=== PATIENT | male | born 1990 | race Caucasian/White ===

== ENCOUNTER 2018-10-14 12:25 | Emergency (ER) | payer MEDICAID ==
[~2018-10-14] VITALS: Ht 188 cm; Wt 90.9 kg
[2018-10-14 12:35] VITALS: BP 144/85
[2018-10-14] MEDS ORDERED: LORazepam 1 MG tablet PO ONE (13:25)
[2018-10-14] MEDS ORDERED: LORA1TAB PO (13:26)
== END 2018-10-14 13:54 | disposition home or self-care (01) ==
LOC: ER 12:25
DX: F41.9 Anxiety disorder, unspecified (principal); F31.9 Bipolar disorder, unspecified; Z79.899 Other long term (current) drug therapy
CPT/HCPCS: 99284

== ENCOUNTER 2018-10-20 05:27 | Emergency (ER) | payer MEDICAID ==
[~2018-10-20] VITALS: Ht 188 cm; Wt 90.9 kg
[~2018-10-20 05:27] MED LIST: LORA1TAB PO
[2018-10-20 05:32] VITALS: BP 169/127
[2018-10-20] MEDS ORDERED: HYDR-3686 PO (06:20)
[2018-10-20] MEDS ORDERED: QUET-1 PO (16:00)
[2018-10-20] MEDS ORDERED: ARIP5TAB4 PO (17:21)
[2018-10-20] MEDS ORDERED: CLON-528 PO (17:21)
== END 2018-10-20 06:33 | disposition home or self-care (01) ==
LOC: ER 05:29
DX: F41.9 Anxiety disorder, unspecified (principal); F31.9 Bipolar disorder, unspecified; Z88.8 Allergy status to other drugs, medicaments and biological substances; Z79.899 Other long term (current) drug therapy
CPT/HCPCS: 99284

== ENCOUNTER 2018-10-20 12:19 | Emergency (ER) | payer MEDICAID ==
[~2018-10-20] VITALS: Ht 182.9 cm; Wt 88.8 kg
[~2018-10-20 12:19] MED LIST changes: +HYDR-3686 PO
[2018-10-20 12:26] VITALS: BP 156/117
[2018-10-20] MEDS ORDERED: LORazepam 2 mg/ml vial IM ONE (12:50)
--- NOTE | 2018-10-20 13:14 | NUR ---
PT HERE FOR MENTAL HEALTH EVAL.PT STATES HE IS BIPOLAR AND HAS BEEN TAKING HIS MEDS
[2018-10-20 13:26] LABS: BASOPHILS # (AUTO) 0.1 X10'3 (0-0.2); BASOPHILS % (AUTO) 0.7 % (0-1); EOSINOPHILS # (AUTO) 0.2 X10'3 (0-0.9); EOSINOPHILS % (AUTO) 1.4 % (0-6); HEMATOCRIT 45.4 % (42.0-52.0); HEMOGLOBIN 15.7 g/dl (14.0-17.9); LYMPHOCYTES # (AUTO) 2.9 X10'3 (1.1-4.8); LYMPHOCYTES % (AUTO) 22.4 % (21-51); MEAN CORPUSCULAR HEMOGLOBIN 31.9 PG (27.0-31.0); MEAN CORPUSCULAR HGB CONC 34.6 g/dL (33.0-36.5); MEAN CORPUSCULAR VOLUME 92.2 FL (78-98); MEAN PLATELET VOLUME 7.2 FL (7.4-10.4); MONOCYTES # (AUTO) 1.2 X10'3 (0-0.9); MONOCYTES % (AUTO) 9.7 % (2-12); NEUTROPHILS # (AUTO) 8.4 X10'3 (1.8-7.7); NEUTROPHILS % (AUTO) 65.8 % (42-75); PLATELET COUNT 299 X10'3 (140-440); RED BLOOD COUNT 4.93 X10'6 (4.70-6.10); RED CELL DISTRIBUTION WIDTH 13.3 % (11.5-14.5); WHITE BLOOD COUNT 12.8 X10'3 (4.5-11.0)
[2018-10-20 13:31] LABS: CLARITY,URINE CLEAR (Clear); COLOR,URINE YELLOW (Yellow); GLUCOSE, URINE NEGATIVE (Neg); KETONES,URINE NEGATIVE (Neg); LEUKOCYTE ESTERASE ,URINE TRACE (Neg); NITRITES, URINE NEGATIVE (Neg); OCCULT BLOOD,URINE NEGATIVE (Neg); PROTEIN,URINE NEGATIVE (Neg); UROBILINOGEN,URINE 0.2 E.U/dL (0.2-1.0)
[2018-10-20 13:39] LABS: ALANINE AMINOTRANSFERASE 29 U/L (12-78); ALBUMIN 4.4 G/DL (3.4-5.0); ALBUMIN/GLOBULIN RATIO 1.2 (1.1-1.5); ALKALINE PHOSPHATASE 79 IU/L (46-116); ANION GAP 10 (8-16); ASPARTATE AMINO TRANSFERASE 12 U/L (10-37); BILIRUBIN,TOTAL 0.5 MG/DL (0.1-1.0); BLOOD UREA NITROGEN 9 MG/DL (7-18); CALCIUM 9.5 MG/DL (8.5-10.1); CHLORIDE 101 MMOL/L (99-107); GLUCOSE 99 MG/DL (70-104); POTASSIUM 3.8 MMOL/L (3.5-5.1); SODIUM 138 MMOL/L (135-145); TOTAL CARBON DIOXIDE 27.4 MMOL/L (24-32); eGFR > 90 ML/MIN
[2018-10-20 13:40] LABS: UA COLLECTION TYPE CLN CATCH MIDSTREAM
[2018-10-20 13:42] LABS: WBC,URINE 0-4 /HPF (0-4)
[2018-10-20 13:43] LABS: BACTERIA,URINE NONE SEEN /HPF (Neg); MUCUS STRANDS FEW /LPF (Neg); RBC,URINE 0-2 /HPF (0-2); SQUAMOUS EPITHELIAL CELL,UR FEW /LPF (FEW)
[2018-10-20 13:44] LABS: URINE AMPHETAMINE SCREEN NEGATIVE (Neg); URINE BARBITUATE SCREEN NEGATIVE (Neg); URINE BENZODIAZEPINES SCREEN NEGATIVE (Neg); URINE CANNABINOID SCREEN NEGATIVE (Neg); URINE COCAINE SCREEN NEGATIVE (Neg); URINE METHADONE SCREEN NEGATIVE (Neg); URINE OPIATE SCREEN NEGATIVE (Neg); URINE PHENCYCLIDINE SCREEN NEGATIVE (Neg)
[2018-10-20 13:51] LABS: ETHANOL < 0.010 GM/DL (0.0-0.010)
--- NOTE | 2018-10-20 14:00 | NUR ---
PT'S FAMILY AT BEDSIDE
--- NOTE | 2018-10-20 15:32 | NUR ---
Kevin macario in [facility] - 10/20/18 at 1534 by [facility] FAXED PACKET TO [facility]
[2018-10-20] MEDS ORDERED: QUET-1 PO (16:00)
--- NOTE | 2018-10-20 16:17 | NUR ---
FAXED PACKET TO [facility]
--- NOTE | 2018-10-20 16:18 | NUR ---
[facility] PAGED FOR MED RECOMMENATIONS
--- NOTE | 2018-10-20 16:19 | NUR ---
PT'S MOMSOFIERY'S NUMBER IS [phone]
[2018-10-20] MEDS ORDERED: ARIP5TAB4 PO (17:21)
[2018-10-20] MEDS ORDERED: CLON-528 PO (17:21)
== END 2018-10-20 17:40 | disposition home or self-care (01) ==
LOC: ER 12:20
DX: F31.9 Bipolar disorder, unspecified (principal); Z88.8 Allergy status to other drugs, medicaments and biological substances; Z79.899 Other long term (current) drug therapy
CPT/HCPCS: 36415; 80053; 80305; 80320; 81001; 84443; 85025; 96372; 99284; J2060

== ENCOUNTER 2018-10-27 14:38 | Emergency (ER) | payer MEDICAID ==
[~2018-10-27] VITALS: Ht 188 cm; Wt 9.1 kg
[~2018-10-27 14:38] MED LIST changes: +ARIP5TAB4 PO; +CLON-528 PO; -HYDR-3686 PO; -LORA1TAB PO; +QUET-1 PO
[2018-10-27 14:41] VITALS: BP 135/90
[2018-10-27] MEDS ORDERED: ARIP5TAB4 PO (15:07)
== END 2018-10-27 15:23 | disposition home or self-care (01) ==
LOC: ER 14:38
DX: F31.9 Bipolar disorder, unspecified (principal); F41.9 Anxiety disorder, unspecified; Z76.0 Encounter for issue of repeat prescription; Z79.899 Other long term (current) drug therapy
CPT/HCPCS: 99283

== ENCOUNTER 2018-10-29 19:08 | Emergency (ER) | payer MEDICAID ==
[~2018-10-29] VITALS: Ht 188 cm; Wt 90.9 kg
--- NOTE | 2018-10-29 19:43 | NUR ---
pt is 28 yo male c/o "hearing and seeing things...would like a shot to bring my heartrate...I feel amped and just want it to end--for the bipolar to end", pt denies SI/HI thoughts/plan, c/o insomnia
[2018-10-29] MEDS ORDERED: haloperidol 1mg tablet PO STA (21:18)
[2018-10-29] MEDS ORDERED: LORazepam 1 MG tablet PO ONE (21:20)
[2018-10-29] MEDS ORDERED: diphenhydrAMINE 25mg capsule PO ONE (21:20)
[2018-10-29] MEDS ORDERED: HYDR-3686 PO (21:40)
[2018-10-29 21:49] VITALS: BP 142/84
== END 2018-10-29 21:47 | disposition home or self-care (01) ==
LOC: ER 19:08
DX: F31.9 Bipolar disorder, unspecified (principal); F41.9 Anxiety disorder, unspecified; Z88.8 Allergy status to other drugs, medicaments and biological substances; Z79.899 Other long term (current) drug therapy
CPT/HCPCS: 99284; Q0163

== ENCOUNTER 2018-10-31 16:37 | Emergency (ER) | payer MEDICAID ==
[~2018-10-31] VITALS: Ht 188 cm; Wt 61.0 kg
[~2018-10-31 16:37] MED LIST changes: +HYDR-3686 PO
[2018-10-31 16:45] VITALS: BP 178/110
[2018-10-31] MEDS ORDERED: LORazepam 2 mg/ml vial IM ONE (16:55)
== END 2018-10-31 17:36 | disposition home or self-care (01) ==
LOC: ER 16:38
DX: F30.9 Manic episode, unspecified (principal); F41.9 Anxiety disorder, unspecified; Z88.8 Allergy status to other drugs, medicaments and biological substances; Z79.899 Other long term (current) drug therapy
CPT/HCPCS: 96372; 99284; J2060

== ENCOUNTER 2018-11-04 03:19 | Emergency (ER) | payer MEDICAID ==
[~2018-11-04] VITALS: Ht 188 cm; Wt 90.9 kg
[2018-11-04 04:15] VITALS: BP 132/78
== END 2018-11-04 04:16 ==
LOC: ER 03:19
DX: S00.03XA Contusion of scalp, initial encounter (principal); F41.9 Anxiety disorder, unspecified; F32.9 Major depressive disorder, single episode, unspecified; Z88.8 Allergy status to other drugs, medicaments and biological substances; Z79.899 Other long term (current) drug therapy; Y08.89XA Assault by other specified means, initial encounter; Y93.89 Activity, other specified; Y92.89 Other specified places as the place of occurrence of the external cause; Y99.8 Other external cause status
CPT/HCPCS: 70450; 99284

== ENCOUNTER 2019-01-08 13:17 | Emergency (ER) | payer MEDICAID ==
[~2019-01-08] VITALS: Ht 188 cm; Wt 90.9 kg
[~2019-01-08 13:17] MED LIST changes: +ARIP5TAB14 PO; -ARIP5TAB4 PO; -HYDR-3686 PO
[2019-01-08 13:41] VITALS: BP 154/104
[2019-01-08] MEDS ORDERED: LORazepam 1 MG tablet PO ONE (13:45)
== END 2019-01-08 13:54 | disposition home or self-care (01) ==
LOC: ER 13:18
DX: F41.9 Anxiety disorder, unspecified (principal); F31.9 Bipolar disorder, unspecified; F10.10 Alcohol abuse, uncomplicated; F15.10 Other stimulant abuse, uncomplicated; Z56.0 Unemployment, unspecified; Z88.8 Allergy status to other drugs, medicaments and biological substances; Z79.899 Other long term (current) drug therapy; Y90.9 Presence of alcohol in blood, level not specified
CPT/HCPCS: 99284